=== PATIENT | male | born 1985 | race Caucasian/White ===

== ENCOUNTER → 2018-03-29 | Outpatient (CLI) | payer OTHER ==
--- NOTE | 2018-03-29 14:06 | DIAGNOSTIC IMAGING REPORT ---
VIDEO SWALLOW HISTORY: DYSPHAGIA TECHNIQUE: Video fluoroscopic evaluation of swallowing was performed in the AP and lateral projections by the speech pathology staff. The patient is fed nectar-thick and thin liquid barium, a barium coated wafer, and barium pudding. FLUOROSCOPY TIME: 2.1 minutes. A cine loop was submitted.. COMPARISON STUDY: None. FINDINGS: There is normal hyoid excursion and epiglottic deflection. No significant penetration or aspiration identified. Swallowing function is within normal limits. Mild esophageal dysmotility. IMPRESSION: 1. No aspiration identified. Mild esophageal dysmotility. 2. Please see the speech pathologist report for detailed findings and recommendations. Electronically signed by: Claude Barkley M.D. 03/29/2018 2:05 PM Dictated Date/Time: 03/29/2018 2:03 PM
--- NOTE | 2018-03-30 10:05 | SWALLOWING EVALUATION ---
HISTORY: This 32 year old man was referred for a video swallow study at [facility] in order to rule out aspiration and identify the safest consistencies for optimal oral intake. The patient is reporting increased difficulty with his ability to push food back in his mouth in order to swallow it, and also difficulty swallowing solid foods. He reported a history of GERD and has a known hiatal hernia however denies any other significant PMH. The patient reported that he was taking medication for reflux in the past but currently is not taking any medications for this. Current diet is regular, but he reports that he is careful as to what foods he eats and knows what he can/cannot tolerate. PROCEDURE: The patient was seen in the Radiology Department of [facility] for the VFSS. Cursory examination of the oral cavity revealed the patient to have natural upper and lower dentition in good condition. Movement of the articulators was wnl. The patient was seated upright on a stool and was viewed in both the Anterior-Posterior (A-P) and Lateral planes. Volitional phonation exercises completed in the A-P plane revealed bilateral vocal fold movement. Vocal intensity was wnl. In the lateral plane, the patient was given the following boluses: 1 tsp. thin liquid barium x 2, single swallow thin liquid barium self-presented from a cup, sequential swallows of thin liquid barium self-presented from a straw, 1 tsp. nectar-thick liquid barium, single swallow nectar-thick liquid barium self-presented from a cup, 1 tsp. barium pudding, and 1 club cracker coated in barium pudding. The patient was then repositioned into the A-P plane and given the following boluses: 1 tsp. nectar thick barium and 1 tsp. barium pudding. RESULTS: Oral Stage: Lip closure was adequate. The patient was able to maintain a cohesive liquid bolus in the oral cavity during the liquid bolus hold task. Mastication was timely and efficient. Lingual motion for bolus transport was slow. There was trace retention lining the tongue and palate after the initial swallow. The initiation of the pharyngeal swallow was delayed occurred when the bolus head reached the valleculae. The patient presented with some increased difficulty initiating bolus transfer. It was delayed and it was also noted on occasion that there was some lingual rocking of the bolus. Pharyngeal Stage: Soft palate elevation was complete. Laryngeal elevation revealed partial superior movement of the thyroid cartilage with partial approximation of the arytenoids to the epiglottic base. Anterior hyoid excursion and epiglottic deflection was complete. Laryngeal vestibular closure was in-complete with a trace amount of contrast being located in the vestibule at the height of the swallow. The pharyngeal stripping wave was present and complete. Pharyngeal contraction was complete. There was complete distention and duration of the opening to the pharyngoesophageal segment (PES). Tongue base retraction was partially reduced with a trace column of contrast located between the tongue base and pharyngeal wall during the swallow. There was trace retention located in the valleculae after the swallow. The pharyngeal stage of the swallow was only mildly impaired. There was one episode of laryngeal penetration/scant aspiration of thin liquid via cup just below the vocal folds. The patient produce a throat clear when this occurred which re-directed the liquid. There was no other evidence of laryngeal penetration or aspiration for this study. The patient tended to produce an effortful swallow at times and reported that it was difficult to initiate a swallow. Swallow reflex time was mildly delayed, and other than the one episode of scant aspiration, no other significant difficulty was identified. Esophageal stage: There was evidence of mid-distal esophageal retention with retrograde flow below the PES. A liquid wash assisted to clear some of the solid bolus retention but not fully. This is suggestive of esophageal dysmotility and reflux. SUMMARY/RECOMMENDATIONS: This patient presents with mild peyton-pharyngeal dysphagia. He also has evidence of esophageal dysfunction. The following is recommended: 1. Regular Slippery diet and thin liquids. Avoid foods that are dry, thick, pasty, and doughy. Add condiments to foods such as sauce or gravy to assist in keeping foods moist. 2. Aspiration and GERD precautions. Straws OK. Fully upright for meals and for 30 minutes after meals. Do not lay flat, elevate head of the bed to at least 30 degrees at all time, to include while sleeping. 3. Safe swallow strategies: Alternate solids and liquids. 4. Follow up with ENT as needed. Consider consultation with a GI specialist regarding management of esophageal dysfunction. With regard to the patient's difficulties with initiation of lingual movement for bolus transport, should this continue following management of the patient's esophageal difficulties, consider a consultation with a Neurologist as appropriate. A summary of the results and recommendations was discussed with the patient with verbal understanding. He was provided with both verbal and written information regarding a slippery diet as well with verbal understanding. Thank you for referral of this patient. Please contact me at if any additional information is needed.
== END | disposition home or self-care (01) ==
LOC: C.RAD 13:15
PROVIDERS: ATTEND Otolaryngology
DX: R13.10 Dysphagia, unspecified (principal); J35.8 Other chronic diseases of tonsils and adenoids; K22.4 Dyskinesia of esophagus